=== PATIENT | female | born 1960 | race Caucasian/White ===

== ENCOUNTER 2018-05-01 12:49 | Emergency (ER) | payer BC ==
[2018-05-01] MEDS ORDERED: Albuterol/Ipratropium 3.0-0.5 MG/3 ML Neb Soln NEB ONE (13:11)
--- NOTE | 2018-05-01 13:33 | EDM.PDOC ---
ED HPI GENERAL MEDICAL PROBLEM - General Chief Complaint: Respiratory Problem Stated Complaint: COUGH, Time Seen by Provider: 05/01/18 13:20 Source of Information: Reports: Patient History Limitations: Reports: No Limitations - History of Present Illness INITIAL COMMENTS - FREE TEXT/NARRATIVE: Presents with productive cough x 2 weeks. Has not followed up with her primary physician regarding this. Denies h/o chronic lung disease. Patient has a 30 pack -year smoking history, quit 20 years ago. Has never needed to use an inhaler. Denies chest pain or fevers, but does feel somewhat SOB. Duration: Week(s): (2) Severity: Moderate - Related Data Allergies Allergy/AdvReac Type Severity Reaction Status Date / Time No Known Allergies Allergy Verified 02/01/18 10:22 Home Meds: Home Meds Lisinopril 20 mg PO DAILY 09/12/15 [History] Sertraline [Zoloft] 100 mg PO DAILY 11/14/15 [History] Albuterol Sulfate [Albuterol Sulfate Hfa] 8.5 gm IH Q4H PRN #1 hfa.aer.ad [Rx] Doxycycline Hyclate 100 mg PO BID #20 capsule 05/01/18 [Rx] Past Medical History HEENT History: Reports: Impaired Vision Cardiovascular History: Reports: Hypertension. Denies: CAD Respiratory History: Reports: Other (See Below). Denies: Asthma, COPD Other Respiratory History: former smoker for 30 years. Gastrointestinal History: Reports: None, Cholelithiasis Genitourinary History: Reports: None MANAGER MUSIC History: Reports: Other MANAGER MUSIC History: HYSTERECTOMY, IV PARA III AB I Musculoskeletal History: Reports: Other (See Below) Other Musculoskeletal History: ARTHOPATHY Neurological History: Reports: None Psychiatric History: Reports: Anxiety, Depression Endocrine/Metabolic History: Reports: Obesity/BMI 30+ Hematologic History: Reports: None Immunologic History: Reports: None Oncologic (Cancer) History: Reports: None Dermatologic History: Reports: Other (See Below) Other Dermatologic History: 2 SKIN LESIONS TO LEFT LOWER LEG AND FOOT CURRENT - Infectious Disease History Infectious Disease History: Reports: Chicken Pox, Measles, Mumps, Shingles - Past Surgical History Head Surgeries/Procedures: Reports: None HEENT Surgical History: Reports: Tonsillectomy GI Surgical History: Reports: Appendectomy, Cholecystectomy Female Surgical History: Reports: Hysterectomy Musculoskeletal Surgical History: Reports: Ganglion Cyst, Knee Replacement, Shoulder Surgery Other Musculoskeletal Surgeries/Procedures:: LAILA. KNEE REPLACEMENTS, RIGHT ROTATOR CUFF, LEFT FOOT SURGERY. Social & Family History - Family History Family Medical History: Noncontributory - Tobacco Use Smoking Status *Q: Former Smoker Tobacco Use Within Last Twelve Months: No Years of Tobacco use: 30 Used Tobacco, but Quit: Yes Month/Year Tobacco Last Used: cannot remember Second Hand Smoke Exposure: No - Caffeine Use Caffeine Use: Reports: Coffee - Recreational Drug Use Recreational Drug Use: No ED ROS GENERAL - Review of Systems Review Of Systems: ROS reveals no pertinent complaints other than HPI. ED EXAM, GENERAL - Physical Exam Exam: See Below Exam Limited By: No Limitations General Appearance: Alert, WD/WN, No Apparent Distress Ears: Normal External Exam Nose: Normal Inspection Throat/Mouth: Normal Inspection, No Airway Compromise Head: Atraumatic, Normocephalic Neck: Normal Inspection Respiratory/Chest: No Respiratory Distress, No Accessory Muscle Use, Decreased Breath Sounds, Wheezing (expiratory) Cardiovascular: Regular Rate, Rhythm, No Murmur GI/Abdominal: No Distention Back Exam: Full Range of Motion Extremities: Normal Range of Motion Neurological: Alert, Normal Cognition, No Motor/Sensory Deficits Psychiatric: Normal Affect, Normal Mood Skin Exam: Warm, Dry, Intact Course - Vital Signs Last Recorded V/S: Last Vital Signs Temp 35.7 C 05/01/18 12:55 Pulse 73 05/01/18 12:55 Resp 18 05/01/18 12:55 BP 147/82 H 05/01/18 12:55 Pulse Ox 98 05/01/18 12:55 - Orders/Labs/Meds Orders: Active Orders 24 hr Category Date Time Status RT Aerosol Therapy [RC] ASDIRECTED Care 05/01/18 13:12 Active CXR [Chest 2V] [CR] Stat Exams 05/01/18 13:11 Taken CULTURE SPUTUM + SMEAR [RM] Stat Lab 05/01/18 13:11 Ordered Meds: Medications Discontinued Medications Generic Name Dose Route Start Last Admin Trade Name Freq PRN Reason Stop Dose Admin Albuterol/Ipratropium 3 ml 05/01/18 13:11 05/01/18 13:15 Duoneb 3.0-0.5 Mg/3 Ml NEB 05/01/18 13:12 3 ml ONETIME ONE Administration - Radiology Interpretation Free Text/Narrative:: CXR: NAD - Re-Assessments/Exams Free Text/Narrative Re-Assessment/Exam: 05/01/18 15:10 Patient feels better after duoneb, decreased wheeze and increase aeration on re- examination. Departure - Departure Time of Disposition: 15:11 Disposition: Home, Self-Care 01 Condition: Good Clinical Impression: Bronchitis - Discharge Information *PRESCRIPTION DRUG MONITORING PROGRAM REVIEWED*: No *COPY OF PRESCRIPTION DRUG MONITORING REPORT IN PATIENT CRIS: Not Applicable Prescriptions: Albuterol Sulfate [Albuterol Sulfate Hfa] 8.5 gm IH Q4H PRN #1 hfa.aer.ad PRN Reason: Shortness Of Breath Doxycycline Hyclate 100 mg PO BID #20 capsule Instructions: Acute Bronchitis, Adult, [id number] Referrals: PCP,None [Primary Care Provider] - Forms: ED Department Discharge Additional Instructions: Fill prescriptions for Doxycycline and Albuterol at [facility] in [place], take as directed. May also take OTC Mucinex as needed. Follow up with your primary physician in 3 days if symptoms don't improve. Return to the ER if symptoms worsen. - My Orders Last 24 Hours: My Active Orders 05/01/18 13:11 CXR [Chest 2V] [CR] Stat CULTURE SPUTUM + SMEAR [RM] Stat 05/01/18 13:12 RT Aerosol Therapy [RC] ASDIRECTED - Assessment/Plan Last 24 Hours: My Active Orders 05/01/18 13:11 CXR [Chest 2V] [CR] Stat CULTURE SPUTUM + SMEAR [RM] Stat 05/01/18 13:12 RT Aerosol Therapy [RC] ASDIRECTED
[2018-05-01 17:54] VITALS: BP 147/66
== END 2018-05-01 15:42 | disposition home or self-care (01) ==
LOC: FB.ED 12:49
DX: J40 Bronchitis, not specified as acute or chronic (principal); I10 Essential (primary) hypertension; F41.9 Anxiety disorder, unspecified; F32.9 Major depressive disorder, single episode, unspecified; Z87.891 Personal history of nicotine dependence; Z79.899 Other long term (current) drug therapy
CPT/HCPCS: 71046; 94640; 99283-25; J7620-GY

== ENCOUNTER 2019-01-24 14:39 | Emergency (ER) | payer BC ==
[2019-01-24] MEDS ORDERED: Nitroglycerin 0.4 MG Tab.SL SL PRN (15:02)
[2019-01-24] MEDS ORDERED: Aspirin 81 MG Tab.Chew PO ONE (15:02)
[2019-01-24] MEDS ORDERED: Sodium Chloride 0.9% 10 ML Syringe FLUSH PRN (15:04)
[2019-01-24 15:05] VITALS: PULSE 77
[2019-01-24 15:21] VITALS: BP 123/64
--- NOTE | 2019-01-24 16:02 | EDM.PDOC ---
ED HPI GENERAL MEDICAL PROBLEM - General Chief Complaint: Chest Pain Stated Complaint: FEELS FUNNY Time Seen by Provider: 01/24/19 14:50 Source of Information: Reports: Patient History Limitations: Reports: No Limitations - History of Present Illness INITIAL COMMENTS - FREE TEXT/NARRATIVE: Patient presented to the Ed because of "feeling funny". She said she has twinges on the left side of her chest,04/18. She denies any recent cough/cold, nausea/vomiting,dyspnea or diaphoresis. - Related Data Allergies Allergy/AdvReac Type Severity Reaction Status Date / Time No Known Allergies Allergy Verified 02/01/18 10:22 Home Meds: Home Meds Lisinopril 20 mg PO DAILY 09/12/15 [History] Sertraline [Zoloft] 100 mg PO DAILY 11/14/15 [History] Albuterol Sulfate [Albuterol Sulfate Hfa] 8.5 gm IH Q4H PRN #1 hfa.aer.ad [Rx] Doxycycline Hyclate 100 mg PO BID #20 capsule 05/01/18 [Rx] Past Medical History HEENT History: Reports: Impaired Vision Cardiovascular History: Reports: Hypertension. Denies: CAD Respiratory History: Reports: Other (See Below). Denies: Asthma, COPD Other Respiratory History: former smoker for 30 years. Gastrointestinal History: Reports: None, Cholelithiasis Genitourinary History: Reports: None SIDE HEMMER History: Reports: Other SIDE HEMMER History: HYSTERECTOMY, IV PARA III AB I Musculoskeletal History: Reports: Other (See Below) Other Musculoskeletal History: ARTHOPATHY Neurological History: Reports: None Psychiatric History: Reports: Anxiety, Depression Endocrine/Metabolic History: Reports: Obesity/BMI 30+ Hematologic History: Reports: None Immunologic History: Reports: None Oncologic (Cancer) History: Reports: None Dermatologic History: Reports: Other (See Below) Other Dermatologic History: 2 SKIN LESIONS TO LEFT LOWER LEG AND FOOT CURRENT - Infectious Disease History Infectious Disease History: Reports: Chicken Pox, Measles, Mumps, Shingles - Past Surgical History Head Surgeries/Procedures: Reports: None HEENT Surgical History: Reports: Tonsillectomy GI Surgical History: Reports: Appendectomy, Cholecystectomy Female Surgical History: Reports: Hysterectomy Musculoskeletal Surgical History: Reports: Ganglion Cyst, Knee Replacement, Shoulder Surgery Other Musculoskeletal Surgeries/Procedures:: LAIAL. KNEE REPLACEMENTS, RIGHT ROTATOR CUFF, LEFT FOOT SURGERY. Social & Family History - Family History Family Medical History: Noncontributory - Tobacco Use Smoking Status *Q: Never Smoker - Caffeine Use Caffeine Use: Reports: Soda - Recreational Drug Use Recreational Drug Use: No ED ROS GENERAL - Review of Systems Review Of Systems: See Below Constitutional: Reports: No Symptoms HEENT: Reports: No Symptoms Respiratory: Reports: No Symptoms Cardiovascular: Reports: Chest Pain Endocrine: Reports: No Symptoms GI/Abdominal: Reports: No Symptoms : Reports: No Symptoms Musculoskeletal: Reports: No Symptoms Skin: Reports: No Symptoms Neurological: Reports: No Symptoms Psychiatric: Reports: Anxiety, Depression ED EXAM, GENERAL - Physical Exam Exam: See Below Exam Limited By: No Limitations General Appearance: Alert, WD/WN, No Apparent Distress Ears: Normal External Exam, Normal Canal, Hearing Grossly Normal Nose: Normal Inspection, Normal Mucosa, No Blood Throat/Mouth: Normal Inspection, Normal Lips, Normal Teeth, Normal Gums Head: Atraumatic, Normocephalic Neck: Normal Inspection, Supple, Non-Tender, Full Range of Motion Respiratory/Chest: No Respiratory Distress, Lungs Clear, Normal Breath Sounds, No Accessory Muscle Use, Chest Non-Tender Cardiovascular: Normal Peripheral Pulses, Regular Rate, Rhythm, No Edema, No Gallop, No JVD, No Murmur, No Rub GI/Abdominal: Normal Bowel Sounds, Soft, Non-Tender, No Organomegaly Neurological: Alert, Oriented, CN II-XII Intact, Normal Cognition, Normal Reflexes, No Motor/Sensory Deficits Psychiatric: Anxious, Flat Affect Course - Vital Signs Text/Narrative:: Labs reviewed with aptient and with full understanding [id number] trop-neg ASA 324 mg PO x1 NTG 0.4 mg SL x1 She was chest pain free free upon discharge. Last Recorded V/S: Last Vital Signs Temp 36.8 C 01/24/19 14:39 Pulse 77 01/24/19 14:39 Resp 18 01/24/19 14:39 BP 123/64 01/24/19 15:18 Pulse Ox 99 01/24/19 14:39 - Orders/Labs/Meds Orders: Active Orders 24 hr Category Date Time Status EKG Documentation Completion [RC] ASDIRECTED Care 01/24/19 14:57 Active Saline Lock Insert [OM.PC] Routine Oth 01/24/19 15:04 Ordered EKG 12 Lead [EK] Routine Ther 01/24/19 14:57 Ordered Labs: Laboratory Tests 01/24/19 01/24/19 01/24/19 Range/Units 15:14 15:14 15:14 WBC 9.0 (4.5-12.0) X10-3/uL RBC 4.28 (3.23-5.20) x10(6)uL Hgb 13.0 (11.5-15.5) g/dL Hct 38.9 (30.0-51.3) % MCV 90.9 (80-96) fL MCH 30.3 (27.7-33.6) pg MCHC 33.3 (32.2-35.4) g/dL RDW 12.6 (11.5-15.5) % Plt Count 318 (125-369) X10(3)uL MPV 7.7 (7.4-10.4) fL Neut % (Auto) 79.8 (46-82) % Lymph % (Auto) 13.8 (13-37) % [place] % (Auto) 5.0 (4-12) % Eos % (Auto) 1 (1.0-5.0) % Baso % (Auto) 0 (0-2) % Neut # (Auto) 7.2 (1.6-8.3) # Lymph # (Auto) 1.2 (0.6-5.0) # [place] # (Auto) 0.5 (0.0-1.3) # Eos # (Auto) 0.1 (0.0-0.8) # Baso # (Auto) 0.0 (0.0-0.2) # PT 9.6 (8.7-11.1) INR 0.99 (0.89-1.13) APTT 26.2 (24.4-33.2) SECONDS D-Dimer, Quantitative (0.0-0.59) mg/LFEU Sodium 142 (135-145) mmol/L Potassium 4.0 (3.5-5.3) mmol/L Chloride 104 (100-110) mmol/L Carbon Dioxide 32 (21-32) mmol/L BUN 16 (7-18) mg/dL Creatinine 0.8 (0.55-1.02) mg/dL Est Cr Clr Drug Dosing 81.88 mL/min Estimated GFR (MDRD) > 60 (>60) BUN/Creatinine Ratio 20.0 (9-20) Glucose 106 (80-116) mg/dL Calcium 9.3 (8.6-10.2) mg/dL Total Bilirubin 0.4 (0.1-1.3) mg/dL AST 17 (5-25) IU/L ALT 31 (12-36) U/L Alkaline Phosphatase 88 (56-112) IU/L Troponin I (<0.017-0.056) ng/mL Total Protein 7.5 (6.0-8.0) g/dL Albumin 3.8 (3.5-5.2) g/dL Globulin 3.7 g/dL Albumin/Globulin Ratio 1.0 01/24/19 01/24/19 Range/Units 15:14 15:14 WBC (4.5-12.0) X10-3/uL RBC (3.23-5.20) x10(6)uL Hgb (11.5-15.5) g/dL Hct (30.0-51.3) % MCV (80-96) fL MCH (27.7-33.6) pg MCHC (32.2-35.4) g/dL RDW (11.5-15.5) % Plt Count (125-369) X10(3)uL MPV (7.4-10.4) fL Neut % (Auto) (46-82) % Lymph % (Auto) (13-37) % [place] % (Auto) (4-12) % Eos % (Auto) (1.0-5.0) % Baso % (Auto) (0-2) % Neut # (Auto) (1.6-8.3) # Lymph # (Auto) (0.6-5.0) # [place] # (Auto) (0.0-1.3) # Eos # (Auto) (0.0-0.8) # Baso # (Auto) (0.0-0.2) # PT (8.7-11.1) INR (0.89-1.13) APTT (24.4-33.2) SECONDS D-Dimer, Quantitative 0.38 (0.0-0.59) mg/LFEU Sodium (135-145) mmol/L Potassium (3.5-5.3) mmol/L Chloride (100-110) mmol/L Carbon Dioxide (21-32) mmol/L BUN (7-18) mg/dL Creatinine (0.55-1.02) mg/dL Est Cr Clr Drug Dosing mL/min Estimated GFR (MDRD) (>60) BUN/Creatinine Ratio (9-20) Glucose (80-116) mg/dL Calcium (8.6-10.2) mg/dL Total Bilirubin (0.1-1.3) mg/dL AST (5-25) IU/L ALT (12-36) U/L Alkaline Phosphatase (56-112) IU/L Troponin I < 0.017 L (<0.017-0.056) ng/mL Total Protein (6.0-8.0) g/dL Albumin (3.5-5.2) g/dL Globulin g/dL Albumin/Globulin Ratio Meds: Medications Discontinued Medications Generic Name Dose Route Start Last Admin Trade Name Freq PRN Reason Stop Dose Admin Aspirin 324 mg 01/24/19 15:02 01/24/19 15:15 Aspirin PO 01/24/19 15:03 324 mg ONETIME ONE Administration Nitroglycerin 0.4 mg 01/24/19 15:02 01/24/19 15:18 Nitrostat SL 0.4 mg Q5M PRN Administration Chest Pain Sodium Chloride 10 ml 01/24/19 15:04 01/24/19 15:19 Saline Flush FLUSH 10 ml ASDIRECTED PRN Administration Keep Vein Open Departure - Departure Time of Disposition: 16:00 Disposition: Home, Self-Care 01 Condition: Good Clinical Impression: Chest pain Instructions: Angina Pectoris, [id number] Referrals: Qamar Walsh MD [Primary Care Provider] - Forms: ED Department Discharge Additional Instructions: please read discharge instructions on chest pain follow up with your doctor this week, you might need a stress test Sepsis Event Note - Evaluation Sepsis Screening Result: No Definite Risk - Focused Exam Date Exam was Performed: 01/25/19 Time Exam was Performed: 09:28 - My Orders Last 24 Hours: My Active Orders 01/24/19 14:57 EKG Documentation Completion [RC] ASDIRECTED EKG 12 Lead [EK] Routine 01/24/19 15:04 Saline Lock Insert [OM.PC] Routine - Assessment/Plan Last 24 Hours: My Active Orders 01/24/19 14:57 EKG Documentation Completion [RC] ASDIRECTED EKG 12 Lead [EK] Routine 01/24/19 15:04 Saline Lock Insert [OM.PC] Routine
== END 2019-01-24 16:25 | disposition home or self-care (01) ==
LOC: FB.ED 14:39
DX: R07.9 Chest pain, unspecified (principal); I10 Essential (primary) hypertension; F41.9 Anxiety disorder, unspecified; F32.9 Major depressive disorder, single episode, unspecified; E66.9 Obesity, unspecified; Z68.41 Body mass index [BMI] 40.0-44.9, adult; Z87.891 Personal history of nicotine dependence; Z79.899 Other long term (current) drug therapy
CPT/HCPCS: 36415; 80053; 84484; 85025; 85379; 85610; 85730; 93005; 99285; A9270